=== PATIENT | female | born 1985 | race Two or more races ===

== ENCOUNTER 2022-11-23 10:48 | Emergency (ER) | payer OTHER ==
[~2022-11-23] VITALS: Ht 175.3 cm; Wt 99.8 kg
[2022-11-23] MEDS ORDERED: BIKTARVY 30-121 EACH (11:01)
== END 2022-11-23 12:30 | disposition home or self-care (01) ==
LOC: ER 10:48
DX: L03.317 Cellulitis of buttock (principal); R21 Rash and other nonspecific skin eruption; F41.8 Other specified anxiety disorders